=== PATIENT | female | born 1990 | race African-American/Black ===

== ENCOUNTER 2023-11-24 09:20 | Inpatient (IN) ==
[2023-11-24] MEDS ORDERED: Lidocaine 1% VIAL 10 MG/ML 30 ML VIAL INJ PRN (10:17)
[2023-11-24 11:27] LABS: Urine Appearance Clear; Urine Bilirubin Negative (Negative); Urine Blood Negative (Negative); Urine Color Light-Yellow; Urine Glucose Negative (Negative); Urine Ketones Negative (Negative); Urine Nitrite Negative (Negative); Urine Protein Trace (Negative); Urine Specific Gravity 1.022 (1.002-1.030); Urine Urobilinogen Negative (Negative)
[2023-11-24] MEDS: miSOPROStol 100 mcg TAB VAGINAL ONE ×2 (11:30→15:47)
[2023-11-24 11:37] LABS: Hematocrit 36.8 % (35-45); Hemoglobin 12.3 g/dL (11.5-14.3); Mean Corpuscular Hemoglobin 28.8 pg (27-33); Mean Corpuscular Hgb Conc 33.5 g/dL (31-36); Mean Corpuscular Volume 85.8 fL (80-97); Red Blood Count 4.29 10^6/uL (3.63-4.92); White Blood Count 10.3 10^3/uL (3.8-11.8)
[2023-11-24 11:45] LABS: Urine Benzodiazepine Screen None Detected (None Detect); Urine Cannabinoids Screen Presumptive Positive (None Detect); Urine Opiates Screen None Detected (None Detect)
[2023-11-24 12:04] LABS: ABS Eosinophils 0.1 10^3/uL (0.0-0.5); ABS Lymphocytes 2.4 10^3/uL (1.0-4.8); ABS Monocytes 0.8 10^3/uL (0.0-0.9); ABS Neutrophils 7.1 10^3/uL (1.5-7.6); Eosinophil % 0.6 %; Giant Platelets Present; Large Platelets Present; Lymphocyte % 22.9 %; Mean Platelet Volume 8.8 fL (7.5-11.2); Platelet Count 285 10^3/uL (150-450)
[2023-11-24] MEDS: Lactated Ringers 1000 ml BAG 1,000 ML IV ONE (15:14)
[2023-11-24] MEDS: miSOPROStol 100 mcg TAB PO ONE (20:16)
[2023-11-24] MEDS: Penicillin G Potassium IV 5,000,000 UNITS in NS 0.9% 100 ml BAG 100 ML IVPB ONE (20:45)
[2023-11-24] MEDS: fentaNYL 100 mcg/2 ml 50 MCG/ML VIAL IV SLOW PU ONE (22:39)
[2023-11-25] MEDS: Oxytocin in LR 20,000 MILLI.UNIT/1,000 ML BAG IV ONE (00:04)
[2023-11-25] MEDS ORDERED: Polyethylene Glycol 3350 17 GM PACKET PO PRN (01:00)
[2023-11-25] MEDS ORDERED: Penicillin G Potassium IV 3,000,000 UNITS in NS 0.9% 100 ml BAG 100 ML IVPB SCH (01:00)
[2023-11-25] MEDS ORDERED: Lactated Ringers 1000 ml BAG 1,000 ML IV SCH (01:00)
[2023-11-25] MEDS: Ondansetron 4 mg VIAL 2 MG/ML 2 ml VIAL IV ONE ×2 (01:27→08:07)
[2023-11-25] MEDS: Oxytocin in LR 20,000 MILLI.UNIT/1,000 ML BAG IV SCH (03:06)
[2023-11-25] MEDS: Dibucaine 1% OINT 28.35 GM TUBE PR PRN (04:29)
[2023-11-25] MEDS: Witch Hazel PAD JAR TOPICAL PRN (04:29)
[2023-11-26 07:01] LABS: ABS Eosinophils 0.1 10^3/uL (0.0-0.5); ABS Lymphocytes 3.6 10^3/uL (1.0-4.8); ABS Monocytes 0.9 10^3/uL (0.0-0.9); ABS Nucleated RBC 0.01 10^3/ul; Eosinophil % 0.6 %; Hematocrit 36.5 % (35-45); Hemoglobin 12.1 g/dL (11.5-14.3); Lymphocyte % 28.2 %; Mean Corpuscular Hemoglobin 28.4 pg (27-33); Mean Corpuscular Hgb Conc 33.3 g/dL (31-36); Mean Corpuscular Volume 85.5 fL (80-97); Mean Platelet Volume 8.6 fL (7.5-11.2); Nucleated Red Blood Cells % 0.1 %/100WBC (0.0-0.8); Platelet Count 280 10^3/uL (150-450); Red Blood Count 4.27 10^6/uL (3.63-4.92); Red Cell Distribution Width 15.2 % (12-17); White Blood Count 12.6 10^3/uL (3.8-11.8)
[2023-11-26 07:48] VITALS: BP 104/44
== END 2023-11-26 15:43 | disposition home or self-care (01) | DRG 560 ==
LOC: MCHOBOUT 09:20 → MCHOB 09:44
PROVIDERS: ADMIT Midwife; ATTEND Midwife